=== PATIENT | female | born 2000 | race Hispanic/Latino ===

== ENCOUNTER 2019-09-17 22:12 | Emergency (ER) | payer SELFPAY ==
[2019-09-19] MEDS ORDERED: ADENOSINE 60 MG/20 ML VIAL ONE (11:39)
== END 2019-09-18 00:29 | disposition home or self-care (01) ==
LOC: ERS 22:12
DX: J06.9 Acute upper respiratory infection, unspecified (principal); R59.0 Localized enlarged lymph nodes; J45.909 Unspecified asthma, uncomplicated; F41.9 Anxiety disorder, unspecified; F32.9 Major depressive disorder, single episode, unspecified
CPT/HCPCS: 87804; 99283